=== PATIENT | male | born 1975 | race Caucasian/White ===

== ENCOUNTER 2018-07-19 07:08 | Emergency (ER) ==
[2018-07-19 07:16] VITALS: BP 116/83; TEMP 98.4; BMI 23.2
[2018-07-19] MEDS ORDERED: TORADOL IM STA (07:24)
--- NOTE | 2018-07-19 08:29 | ED.PDOC ---
General ED Provider: Dr. AVA JOHNS Chief Complaint: Kidney Stone Stated Complaint: R.L.Q /R. FLANK PAIN RADIATING TO RIGHT GROIN ONSET 3 DAYS A GO Time Seen by Physician: 07:12 Mode of Arrival: Walk-In Information Source: Patient Exam Limitations: No limitations Nursing and Triage Documentation Reviewed and Agree: Yes Does patient meet sepsis criteria?: No System Inflammatory Response Syndrome: Not Applicable Sepsis Protocol: For patient's 13 years and over: Temp is 96.8 and below OR 101 and greater Pulse >90 BPM Resp >20/minute Acutely Altered Mental Status Are patient's symptoms suggestive of a new infection, such as: -Pneumonia -Skin, Soft Tissue -Endocarditis -UTI -Bone, Joint Infection -Implantable Device -Acute Abdominal Infection -Wound Infection -Meningitis -Blood Stream Catheter Infection -Unknown GI Complaint Exam - Abdominal Pain Complaint/Exam Onset: Sudden (ONSET 3 DAYS AGO WAS UNABLE TO VOID FOR HOURS THAT PROBLEM DID RESOLVE BUT HAS DYSURIA , AND AND ABDOMINAL PAIN ON THE RIGHT SIDE) Duration: 3 DAYS Symptoms Are: Still present (INABILITY TO VOID HAS RESOLVED) Timing: Constant Initial Severity: Moderate Current Severity: Moderate Location of Pain: RLQ (/F;ANL) Radiates To: Reports: Flank (RIGHT ) Character: Reports: Aching Aggravating: Reports: None (LAST MEAL1 DAY AGO , LAST B.M. 3 DAYS AGO NEGATIVE BLACK OR BLOODY STOOLS ) Associated Signs and Symptoms: Reports: Back pain (RIGHT), Dysuria, Decreased appetite, Nausea. Denies: Diaphoresis, Fever, Cough, Chest pain, Dizziness, Constipation, Blood in stool, Urinary frequency, Decreased urine output, Discharge, Vomiting, Diarrhea, Decreased activity AAA Risk Factors: Reports: None Cardiac Risk Factors: Reports: None Testicular Torsion Risk Factors: Reports: None Related Surgical History: Reports: None Abdominal Findings: Present: CVA Tenderness (RIGHT), Other (SOME PAIN 3/10 RIGHT LOWER ABDOMEN . ). Absent: Pulsatile mass, Abdominal distention, Unequal femoral pulses, Rebound tenderness, Hernia, Inguinal swelling Differential Diagnoses: Appendicitis, Renal Colic, UTI Review of Systems - Review Of Systems Constitutional: Reports: No symptoms Eyes: Reports: No symptoms Ears, Nose, Mouth, Throat: Reports: No symptoms Respiratory: Reports: No symptoms Cardiac: Reports: No symptoms GI: Reports: Abdominal pain : Reports: Dysuria Musculoskeletal: Reports: Back pain (RIGHT) Skin: Reports: No symptoms Neurological: Reports: No symptoms Endocrine: Reports: No symptoms Hematologic/Lymphatic: Reports: No symptoms All Other Systems: Reviewed and Negative Past Medical History - Past Medical History Previously Healthy: Yes Endocrine: Reports: None Cardiovascular: Reports: None Respiratory: Reports: None Hematological: Reports: None Gastrointestinal: Reports: None Genitourinary: Reports: None Neuro/Psych: Reports: None Musculoskeletal: Reports: None Cancer: Reports: None - Surgical History General Surgical History: Reports: Unknown - Family History Family History: Reports: Unknown - Social History Smoking Status: Never smoker Hx Substance Use: No Alcohol Screening: None Physical Exam - Physical Exam Appearance: Well-appearing, No pain distress, Well-nourished Eyes: TRISH, EOMI, Conjunctiva clear ENT: Ears normal, Nose normal, Oropharynx normal Respiratory: Airway patent, Breath sounds clear, Breath sounds equal, Respirations nonlabored Cardiovascular: RRR, Pulses normal, No rub, No murmur GI/: Tender (RLQ ) Musculoskeletal: ROM intact (BUT RIGHT FLANK PAIN) Skin: Warm, Dry, Normal color Neurological: Sensation intact, Motor intact, Reflexes intact, Cranial nerves intact, Alert, Oriented Psychiatric: Affect appropriate, Mood appropriate Physician Notification - Case Discussed Physician Notified: NAM Lerner/ [facility] Time of Notification: 08:40 (TRANSFER NOW SEND DISCS, KEEP N.P.O HAVE PT GO TO SAME DAY SURGERY) Critical Care Note - Critical Care Note Total Time (mins): 0 Course - Course Hematology/Chemistry: 07/19/18 07:32 Orders, Labs, Meds: Lab Review 07/19/18 07/19/18 07:32 07:50 WBC 10.78 H RBC 4.82 Hgb 14.2 Hct 41.8 L MCV 86.7 MCH 29.5 MCHC 34.0 RDW Coeff of [place] 12.2 Plt Count 219 Immature Gran % (Auto) 0.3 Neut % (Auto) 85.1 Lymph % (Auto) 6.2 L [place] % (Auto) 7.8 Eos % (Auto) 0.4 Baso % (Auto) 0.2 Immature Gran # (Auto) 0.0 Neut # (Auto) 9.2 H Lymph # (Auto) 0.7 [place] # (Auto) 0.8 Eos # (Auto) 0.0 Baso # (Auto) 0.0 Urine Color Yellow Urine Clarity Clear Urine pH 5.5 Ur Specific [place] 1.025 Urine Protein 1+ Urine Glucose (UA) Negative Urine Ketones 4+ Urine Blood Trace-lysed Urine Nitrite Negative Urine Bilirubin 1+ Urine Urobilinogen 0.2 Ur Leukocyte Esterase Negative Urine Microscopic RBC 2-5 Urine Microscopic WBC 0-2 Ur Squamous Epith Cells Not present Urine Mucus Trace Orders Category Date Time Status CBC W/ AUTO DIFF Stat LAB 07/19/18 07:24 Ordered COMPREHENSIVE METABOLIC PANEL Stat LAB 07/19/18 07:24 Ordered URINALYSIS C & S IF INDICATED Stat LAB 07/19/18 07:24 Uncollected Ketorolac Tromethamine [Toradol] MEDS 07/19/18 07:24 Stat 60 mg IM ONCE STA CT ABD/PEL WO RENAL STONE PROT Stat RADS 07/19/18 07:24 Ordered Medications Discontinued Medications Generic Name Dose Route Start Last Admin Trade Name Freq PRN Reason Stop Dose Admin Ketorolac Tromethamine 60 mg 07/19/18 07:24 07/19/18 07:53 Toradol IM 07/19/18 07:25 60 mg ONCE STA Administration Vital Signs: Temp Pulse Resp BP Pulse Ox 07/19/18 07:11 98.4 F 99 H 20 116/83 97 Departure - Departure Time of Disposition: 08:40 Disposition: HOME SELF-CARE Discharge Problem: Hydronephrosis with renal and ureteral calculous obstruction, Kidney stone Appendicitis Qualifiers: Appendicitis type: unspecified Qualified Code(s): K37 - Unspecified appendicitis Instructions: Acute Abdominal Pain (DC) Condition: Good Pt referred to PMD for follow-up: Yes IPMP verified?: No Additional Instructions: Please call your Family Physician as soon as possible to schedule a follow-up appointment. Allergies/Adverse Reactions: Allergies No Known Allergies Allergy (Verified 01/06/15 22:02) Home Medications: Ambulatory Orders Dimethyl Fumarate [Tecfidera] 240 mg PO BID 01/06/15
[2018-07-19] MEDS ORDERED: UNASYN 3 GM in SODIUM CHLORIDE 100 ML IV STA (08:37)
[2018-07-19] MEDS ORDERED: MORPHINE 4 MG/ML SYRINGE IVP STA (08:41)
[2018-07-19] MEDS ORDERED: ZOFRAN 4 MG/2 ML IVP STA (08:41)
--- NOTE | 2018-07-19 08:41 | CT ---
EXAM: CT abdomen pelvis without contrast HISTORY: Pain COMPARISON: None TECHNIQUE: CT abdomen pelvis performed without intravenous contrast. Coronal and sagittal reformatt ed images obtained. FINDINGS: Lung bases clear. No free air. No acute abnormalities of the bones. Mild degenerative c hange in the spine. Heart top normal in size. Evaluation organ parenchyma limited without contrast. Liver unremarkable. Gallbladder unremarkable. Pancreas unremarkable. Granulomatous calcification in the spleen. Spleen otherwise unremarkable. Adrenals unremarkable. The aorta normal in caliber. Prostate normal in size. Stomach unremarkable. No dilated loops small bowel. Colon unremarkable. The appendix is dilated at 1.1 cm. Several surrounding sub centimeter lymph nodes. Inflammation in the surrounding mesentery, though not directly centered about the appendix. Mild right hydrouretero nephrosis secondary to a 4 mm obstructing calculus at the right ureterovesicular junction. Associate d right perinephric/periureteral stranding. No nephrolithiasis. No calculi visualized in normal cou rse of the left ureter. IMPRESSION: 1. Mild right hydroureternephrosis and associated right perinephric/periureteral stranding, secondar y to a 4 mm obstructing calculus at the right ureterovesicular junction. 2. Abnormal appearance of the appendix which is dilated up to 1.1 cm. Inflammation in the surroundin g mesentery, though not directly centered about the appendix. Several small adjacent sub centimeter lymph nodes. Differential diagnosis includes acute appendicitis, appendix mucocele, with appendiceal neoplasm not excluded Findings discussed with Dr. Anderson 8:25 a.m. 07/19/2018.
[2018-07-19] MEDS ORDERED: SODIUM CHLORIDE 1,000 ML IV STA (08:42)
[2018-07-19] MEDS ORDERED: UNASYN ONE (08:45)
== END 2018-07-19 09:35 | disposition short-term general hospital (02) ==
LOC: ED 07:08
DX: N13.2 Hydronephrosis with renal and ureteral calculous obstruction (principal); K37 Unspecified appendicitis
CPT/HCPCS: 36415; 74176; 80053; 81001; 85025; 85610; 85730; 93005; 93010; 96361; 96365; 96372; 96375; 99285

== ENCOUNTER 2018-07-19 09:44 | Outpatient (CLI) ==
[2018-07-19 07:16] VITALS: BMI 23.2
== END 2018-07-19 10:35 | disposition short-term general hospital (02) ==
LOC: AMBL 09:44
PROVIDERS: ATTEND Internal Medicine
DX: N20.0 Calculus of kidney (principal); K35.80 Unspecified acute appendicitis